=== PATIENT | male | born 1960 | race Caucasian/White ===

== ENCOUNTER 2024-06-01 06:33 | Day surgery (SDC) | payer OTHER ==
[~2024-06-01] VITALS: Ht 172.7 cm; Wt 104.5 kg
[~2024-06-01 06:33] MED LIST: ALBU18HF12 IH; ASPI-1450 PO; ATOR40TA28 PO; GLUC-148 PO; HYDR25TA2 PO; OMEP20 PO; SODIUM CHLORIDE 0.9% 1,000 ML ONE
[2024-06-01] MEDS ORDERED: LIDOCAINE 4% 50 ML SOLUTION TP ONE (06:34)
[2024-06-01] MEDS ORDERED: BENZOCAINE 20% 50 MCG/SPRAY 57 GM TP ONE (06:34)
[2024-06-01] MEDS ORDERED: ALBUTEROL SULFATE 2.5 MG/0.5 ML NEB SOLUTION NEB ONE (06:34)
[2024-06-01] MEDS ORDERED: LIDOCAINE 2% 11 ML JELLY TP ONE (06:34)
[2024-06-01] MEDS: SODIUM CHLORIDE 0.9% 1,000 ML IV ONE (07:59)
[2024-06-01] MEDS ORDERED: MIDAZOLAM HCL 2 MG/2 ML VIAL ONE (08:19)
[2024-06-01] MEDS ORDERED: FentaNYL CITRATE PF 100 MCG/2 ML VIAL ONE (08:20)
[2024-06-01 09:25] VITALS: PULSE 65; RESP 20; O2SAT 98
[2024-06-01] MEDS ORDERED: MethylPREDNISolone SOD SUCC 125 MG/2 ML VIAL ONE (09:33)
[2024-06-01] MEDS: MethylPREDNISolone SOD SUCC 125 MG/2 ML VIAL IVP ONE (10:16)
== END 2024-06-01 13:20 | disposition home or self-care (01) ==
LOC: SURGERY 06:33
PROVIDERS: ATTEND Internal Medicine Critical Care Medicine
DX: R05.3 Chronic cough (principal); J38.4 Edema of larynx; B37.0 Candidal stomatitis; R06.2 Wheezing; J98.09 Other diseases of bronchus, not elsewhere classified; J84.10 Pulmonary fibrosis, unspecified; J98.8 Other specified respiratory disorders; K57.30 Diverticulosis of large intestine without perforation or abscess without bleeding; R91.8 Other nonspecific abnormal finding of lung field; J43.9 Emphysema, unspecified; M47.814 Spondylosis without myelopathy or radiculopathy, thoracic region; R94.31 Abnormal electrocardiogram [ECG] [EKG]; Z85.21 Personal history of malignant neoplasm of larynx
CPT/HCPCS: 87206; 87101; 87220; 87070; 93005; 31623; 31624; 71045; 71250; 87015; J3010; J2250; J2919; J7030; J7613; Z7610